=== PATIENT | female | born 1965 | race Caucasian/White ===

== ENCOUNTER 2021-04-22 22:44 | Inpatient (IN) | payer OTHER ==
[~2021-04-22] VITALS: Ht 157.5 cm; Wt 50.1 kg
[2021-04-22 23:12] VITALS: BP 111/70
[2021-04-22] MEDS ORDERED: DEXTROSE 50% 25 GM / 50ML DISP.SYRIN. IV PRN (23:15)
[2021-04-22] MEDS ORDERED: IV NORMAL SALINE 1000ML BAG 1,000 ML IV SCH (23:15)
[2021-04-22] MEDS ORDERED: MORPHINE SULFATE 2 MG/ML INJ. IVP PRN (23:15)
[2021-04-22] MEDS ORDERED: ONDANSETRON PF 4 MG/2 ML VIAL. IVP PRN (23:15)
[2021-04-22] MEDS ORDERED: 0.9 % SODIUM CHLORIDE 10 ML DISP.SYRIN. IV PRN (23:15)
[2021-04-22] MEDS ORDERED: KETOROLAC 15 MG/ML VIAL. IVP PRN (23:15)
[2021-04-22] MEDS ORDERED: IV DEXTROSE 5% 250 ML BAG. IV PRN (23:15)
[2021-04-22] MEDS ORDERED: PIP/TAZO PER PHARMACY MC PRN (23:15)
[2021-04-23] MEDS: PIPERACILLIN/TAZOBACTAM 3.375 GM in IV NORMAL SALINE 50ML 50 ML IV SCH ×4 (00:12→18:29)
--- NOTE | 2021-04-23 00:15 | NUR ---
ADMIT NOTE The patient, ISABELLA BILLINGS, 55 y/o, F admitted by LORETTA CORADO MD, was given written information regarding hospital policies, unit procedures and contact persons. Patient transferred from [facility] ED via EMS; MD notified of patient arrival. Patient orientated to unit, plan of care discussed, admit packet reviewed and allergies/home meds verified. Patient resting in bed, bed in lowest/locked position, and call light within reach; no needs voiced at this time.
[2021-04-23] MEDS ORDERED: ALLO300T PO (03:09)
[2021-04-23] MEDS ORDERED: CETI10TA74 PO (03:09)
[2021-04-23] MEDS ORDERED: PROP80CA53 PO (03:09)
[2021-04-23] MEDS ORDERED: TOPI100T42 PO (03:09)
[2021-04-23] MEDS ORDERED: PANT40TA77 PO (03:09)
[2021-04-23] MEDS ORDERED: MULT-245 PO (03:09)
[2021-04-23] MEDS ORDERED: FAMO-63 PO (03:09)
[2021-04-23 03:12] VITALS: BP 117/72
[2021-04-23 05:39] LABS: BASO % 0 % (0-3); EOS # 0.2 x10^3/uL (0.0-0.7); EOS % 3 % (0-3); HEMATOCRIT 32.2 % (36.0-47.0); HEMOGLOBIN 10.6 g/dL (12.0-15.5); LYMPH # 1.5 x10^3/uL (1.0-4.8); LYMPH % 32 % (24-48); MEAN CORPUSCULAR HEMOGLOBIN 30 pg (25-35); MEAN CORPUSCULAR HGB CONC 33 g/dL (31-37); MEAN CORPUSCULAR VOLUME 92 fL (79-100); MONO # 0.5 x10^3/uL (0.0-1.1); MONO % 11 % (0-9); NEUT # 2.6 x10^3/uL (1.8-7.7); NEUT % 54 % (31-73); PLATELET COUNT 157 x10^3/uL (140-400); RED BLOOD COUNT 3.49 x10^6/uL (3.50-5.40); RED CELL DISTRIBUTION WIDTH 13.5 % (11.5-14.5); WHITE BLOOD COUNT 4.8 x10^3/uL (4.0-11.0)
[2021-04-23 05:59] LABS: CALCIUM 8.2 mg/dL (8.5-10.1); CREATININE 1.1 mg/dL (0.6-1.0); GFR 51.6; POTASSIUM 3.6 mmol/L (3.5-5.1)
[2021-04-23 07:00] VITALS: BP 97/64
[2021-04-23] MEDS: INSULIN LISPRO 300 UNITS/3 ML VIAL. SQ SCH ×3 (08:00→17:00)
--- NOTE | 2021-04-23 08:20 | PDOC1 ---
History and Physical Date of Admission Date of Admission DATE: 04/23/21 TIME: 08:18 Identification/Chief Complaint Chief Complaint Flank pain/abdominal pain Source Source: Patient History of Present Illness History of Present Illness Ms Gaytan is a 55-year-old female w/ PMHx DM2, migraines, gout, prior nephrolithiasis, s/p ted-en-y gastric bypass who presents to the emergency department at [facility] in [place], [place] on 04/22/2021 for abdominal pain. Patient reports on Tuesday she started experiencing right flank pain that has now moved to her medial upper abdomen. She reports that the pain is worse after eating. She rates it 5 out of 10. She reports taking tramadol and her Protonix at home for her symptoms. Patient has a history of gout, GERD, hypertension, kidney stones, pyelitis. Patient reports nausea and a fever on Tuesday 1-1.7 which has resolved. Patient denies any vomiting, diarrhea, hematuria, urinary symptoms, reflux. She does note prior stones in 2013 and passed a few small kidney stones January 2021. She has migraines and previously had been on Imitrex and Maxalt prepump of maintenance therapy with Inderal and topiramate 200 mg daily has been on this for over a year but has not had headaches and has been trying to request decreasing her suppressive meds. WBC 5.6, Hb 12.2, platelets 192, NA 142, K4.2, BUN 29, CR 1.1, glucose 70, calcium 9.6, bilirubin 0.2, AST 46, ALT 104, alkaline phosphatase 115, albumin 3.1, lipase 94, urinalysis with large leuk esterase positive nitrites, rapid COVID-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 Transferred to [facility] for further care and urology consultation. Bedside pain controlled with toradol. NPO for surgical evaluation. Past Medical History CENTRAL NERVOUS SYSTEM: Migraine Renal/: Other (nephrolithiasis) Endocrine: Diabetes Past Surgical History Past Surgical History Cholecystectomy, Gastric Bypass - Ted en y, humeral head replacement, ORIF R leg. Left Past Surgical History: Cholecystectomy Family History Family History: High Cholestrol, Hypertension Social History Smoke: No ALCOHOL: none Drugs: None Current Medications Current Medications Current Medications Sodium Chloride (Normal Saline Flush) 3 ml PRN DAILY PRN IV AFTER MEDS AND BLOOD DRAWS; Start 04/22/21 at 23:15 Ondansetron HCl (Zofran) 4 mg PRN Q6HRS PRN IVP NAUSEA/VOMITING; Start 04/22/21 at 23:15 Ketorolac Tromethamine (Toradol 15mg Vial) 15 mg PRN Q8HRS PRN IVP INFLAMMATION Last administered on 04/23/21at 00:16; Start 04/22/21 at 23:15; Stop 04/23/21 at 23:15 Morphine Sulfate (Morphine Sulfate) 2 mg PRN Q2HR PRN IVP PAIN; Start 04/22/21 at 23:15 Insulin Human Lispro (HumaLOG) 0-7 UNITS TIDWMEALS SQ ; Start 04/23/21 at 08:00 Dextrose (Dextrose 50%-Water Syringe) 12.5 gm PRN Q15MIN PRN IV SEE COMMENTS; Start 04/22/21 at 23:15 Dextrose (Iv Dextrose 5%) 250 ml PRN Q15MIN PRN IV SEE COMMENTS; Start 04/22/21 at 23:15 Piperacillin Sod/ Tazobactam Sod (Zosyn Per Pharmacy) 1 each PRN DAILY PRN MC SEE COMMENTS; Start 04/22/21 at 23:15 Sodium Chloride 1,000 ml @ 100 mls/hr Q10H IV Last administered on 04/23/21at 00:11; Start 04/22/21 at 23:15 Piperacillin Sod/ Tazobactam Sod 3.375 gm/Sodium Chloride 50 ml @ 100 mls/hr Q6HRS IV Last administered on 04/23/21at 06:00; Start 04/23/21 at 00:00 Active Scripts Active Reported Zyrtec (Cetirizine Hcl) 10 Mg Tablet 1 Tab PO DAILY Multi Vitamin Daily (Multivitamin) 1 Each Tablet 1 Tab PO DAILY 30 Days Allopurinol 300 Mg Tablet 300 Mg PO DAILY Inderal Xl (Propranolol Hcl) 80 Mg Cap.er.24h 80 Mg PO DAILY Topamax (Topiramate) 100 Mg Tablet 100 Mg PO BID Pepcid (Famotidine) 20 Mg Tablet 20 Mg PO HS Protonix (Pantoprazole Sodium) 40 Mg Tablet.dr 40 Mg PO DAILYAC Allergies Allergies: Coded Allergies: No Known Medication Allergies (Verified Allergy, Unknown, 04/22/21) ROS General: No: Chills, Night Sweats, Fatigue, Malaise, Appetite, Other PSYCHOLOGICAL ROS: No: Anxiety, Behavioral Disorder, Concentration difficultie, Decreased libido, Depression, Disorientation, Hallucinations, Hostility, Irritablity, Memory difficulties, Mood Swings, Obsessive thoughts, Physical abuse, Sexual abuse, Sleep disturbances, Suicidal ideation, Other Eyes: No Blurry vision, No Decreased vision, No Double vision, No Dry eyes, No Excessive tearing, No Eye Pain, No Itchy Eyes, No Loss of vision, No Photophobia, No Scotomata, No Uses contacts, No Uses glasses, No Other HEENT: No: Heacaches, Visual Changes, Hearing change, Nasal congestion, Nasal discharge, Oral lesions, Sinus pain, Sore Throat, Epistaxis, Sneezing, Snoring, Tinnitus, Vertigo, Vocal changes, Other ALLERGY AND IMMUNOLOGY: No: Hives, Insect Bite Sensitivity, Itchy/Watery Eyes, Nasal Congestion, Post Nasal Drip, Seasonal Allergies, Other Hematological and Lymphatic: No: Bleeding Problems, Blood Clots, Blood Transfusions, Brusing, Night Sweats, Pallor, Swollen Lymph Nodes, Other ENDOCRINE: No: Breast Changes, Galactorrhea, Hair Pattern Changes, Hot Flashes, Malaise/lethargy, Mood Swings, Palpitations, Polydipsia/polyuria, Skin Changes, Temperature Intolerance, Unexpected Weight Changes, Other Breast: No New/Changing Breast Lumps, No Nipple changes, No Nipple discharge, No Other Respiratory: No: Cough, Hemoptysis, Orthopnea, Pleuritic Pain, Shortness of breath, SOB with excertion, Sputum Changes, Stridor, Tachypnea, Wheezing, Other Cardiovascular: No Chest Pain, No Palpitations, No Orthopnea, No Paroxysmal Noc. Dyspnea, No Edema, No Lt Headedness, No Other Gastrointestinal: Yes Abdominal Pain; No Nausea, No Vomiting, No Diarrhea, No Constipation, No Melena, No Hematochezia, No Other Genitourinary: No Dysuria, No Frequency, No Incontinence, No Hematuria, No Retention, No Discharge, No Urgency, No Pain, No Flank Pain, No Other, No , No , No , No , No , No , No Musculoskeletal: No Gait Disturbance, No Joint Pain, No Joint Stiffness, No Joint Swelling, No Muscle Pain, No Muscular Weakness, No Pain In:, No Swelling In:, No Other Neurological: No Behavorial Changes, No Bowel/Bladder ControlChng, No Confusion, No Dizziness, No Gait Disturbance, No Headaches, No Impaired Coord/balance, No Memory Loss, No Numbness/Tingling, No Seizures, No Speech Problems, No Tremors, No Visual Changes, No Weakness, No Other Skin: No Dry Skin, No Eczema, No Hair Changes, No Lumps, No Mole Changes, No Mottling, No Nail Changes, No Pruritus, No Rash, No Skin Lesion Changes, No Other, No Acne Physical Exam General: Alert, Oriented X3, Cooperative, No acute distress HEENT: Atraumatic, PERRLA, EOMI, Mucous membr. moist/pink Lungs: Clear to auscultation, Normal air movement Heart: S1S2, RRR, no thrills, no rubs, no gallops, no murmurs Abdomen: Normal bowel sounds, Soft, No hepatosplenomegaly, No masses Rectal Exam: not examined Extremities: No clubbing, No cyanosis, No edema, Normal pulses, No tenderness/swelling Skin: No rashes, No breakdown, No significant lesion Neuro: Normal gait, Normal speech, Strength at 5/5 X4 ext, Normal tone, Sensation intact, Cranial nerves 3-12 NL, Reflexes 2+ Psych/Mental Status: Mental status NL, Mood NL Vitals Vitals Vital Signs Date Time Temp Pulse Resp B/P (MAP) Pulse Ox O2 Delivery O2 Flow Rate FiO2 04/23/21 07:00 97.9 68 18 97/64 (75) 99 Room Air 97.9 Labs Labs Laboratory Tests Test 04/23/21 00:23 04/23/21 04:00 04/23/21 07:23 Glucose (Fingerstick) 195 mg/dL (70-99) 86 mg/dL (70-99) White Blood Count 4.8 x10^3/uL (4.0-11.0) Red Blood Count 3.49 x10^6/uL (3.50-5.40) Hemoglobin 10.6 g/dL (12.0-15.5) Hematocrit 32.2 % (36.0-47.0) Mean Corpuscular Volume 92 fL (79-100) Mean Corpuscular Hemoglobin 30 pg (25-35) Mean Corpuscular Hemoglobin Concent 33 g/dL (31-37) Red Cell Distribution Width 13.5 % (11.5-14.5) Platelet Count 157 x10^3/uL (140-400) Neutrophils (%) (Auto) 54 % (31-73) Lymphocytes (%) (Auto) 32 % (24-48) Monocytes (%) (Auto) 11 % (0-9) Eosinophils (%) (Auto) 3 % (0-3) Basophils (%) (Auto) 0 % (0-3) Neutrophils # (Auto) 2.6 x10^3/uL (1.8-7.7) Lymphocytes # (Auto) 1.5 x10^3/uL (1.0-4.8) Monocytes # (Auto) 0.5 x10^3/uL (0.0-1.1) Eosinophils # (Auto) 0.2 x10^3/uL (0.0-0.7) Basophils # (Auto) 0.0 x10^3/uL (0.0-0.2) Sodium Level 147 mmol/L (136-145) Potassium Level 3.6 mmol/L (3.5-5.1) Chloride Level 112 mmol/L (98-107) Carbon Dioxide Level 23 mmol/L (21-32) Anion Gap 12 (6-14) Blood Urea Nitrogen 24 mg/dL (7-20) Creatinine 1.1 mg/dL (0.6-1.0) Estimated GFR (Cockcroft-Gault) 51.6 Glucose Level 65 mg/dL (70-99) Calcium Level 8.2 mg/dL (8.5-10.1) Laboratory Tests Test 04/23/21 00:23 04/23/21 04:00 04/23/21 07:23 Glucose (Fingerstick) 195 mg/dL (70-99) 86 mg/dL (70-99) White Blood Count 4.8 x10^3/uL (4.0-11.0) Red Blood Count 3.49 x10^6/uL (3.50-5.40) Hemoglobin 10.6 g/dL (12.0-15.5) Hematocrit 32.2 % (36.0-47.0) Mean Corpuscular Volume 92 fL (79-100) Mean Corpuscular Hemoglobin 30 pg (25-35) Mean Corpuscular Hemoglobin Concent 33 g/dL (31-37) Red Cell Distribution Width 13.5 % (11.5-14.5) Platelet Count 157 x10^3/uL (140-400) Neutrophils (%) (Auto) 54 % (31-73) Lymphocytes (%) (Auto) 32 % (24-48) Monocytes (%) (Auto) 11 % (0-9) Eosinophils (%) (Auto) 3 % (0-3) Basophils (%) (Auto) 0 % (0-3) Neutrophils # (Auto) 2.6 x10^3/uL (1.8-7.7) Lymphocytes # (Auto) 1.5 x10^3/uL (1.0-4.8) Monocytes # (Auto) 0.5 x10^3/uL (0.0-1.1) Eosinophils # (Auto) 0.2 x10^3/uL (0.0-0.7) Basophils # (Auto) 0.0 x10^3/uL (0.0-0.2) Sodium Level 147 mmol/L (136-145) Potassium Level 3.6 mmol/L (3.5-5.1) Chloride Level 112 mmol/L (98-107) Carbon Dioxide Level 23 mmol/L (21-32) Anion Gap 12 (6-14) Blood Urea Nitrogen 24 mg/dL (7-20) Creatinine 1.1 mg/dL (0.6-1.0) Estimated GFR (Cockcroft-Gault) 51.6 Glucose Level 65 mg/dL (70-99) Calcium Level 8.2 mg/dL (8.5-10.1) Images Images CT ABD PELV W/ IV CONTRST ONLY The lung bases are clear. No pleural or pericardial effusion. The liver is unremarkable. Status post cholecystectomy with mild intrahepatic biliary ductal dilatation. The pancreas and adrenal glands are unremarkable. Mildly enlarged spleen measures 12.5 cm AP. There is a duplex right kidney. Punctate right nephrolithiasis without hydronephrosis. No right perinephric fat stranding or hydroureter. There is a left ureteral pelvic junction stone measuring 1.1 x 1.7 cm with thickening and enhancement of the renal pelvic urothelium and a several foci of air in the renal calyces. Mild hydronephrosis and mild left perinephric stranding, improved from December comparison. Multiple small left nephroliths. Benign upper left upper pole renal cyst. The bladder is mostly decompressed without focal abnormality. Normal uterus and adnexa. Postsurgical changes of the stomach from gastric bypass. No abnormal dilation. The antecolic alimentary limb with left midabdomen jejunojejunostomy with expected appearance. No small bowel dilatation. The pancreaticobiliary limb is unremarkable. Mild colonic stool burden without abnormal dilation. The appendix is not discretely visualized, however there is no evidence of appendicitis. There is small pelvic free fluid. No intra-abdominal free air. No adenopathy. Mild aortic calcification without aneurysm. The soft tissues are unremarkable. Osseous structures are within normal limits. Impression: 1. Left ureterovesicular junction stone measuring 1.1 x 1.7 cm with thickened enhancing renal pelvic urothelium and air within the renal collecting system. 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 Overall left perinephric inflammation appears improved from comparison exam. Recommend urology consultation. 2. Additional bilateral nephrolithiasis. 3. Mild splenomegaly. 4. Postsurgical changes from gastric bypass without evidence of obstruction. 5. Mild nonspecific free pelvic fluid. 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 NPO. Urology consulted Migraines - with recurrent recent nephrolithiasis advised to decreased topiramate dosing. Gout - also notes prior uric acid stone 2013. On allopurinol DM2 - off meds due to weight loss. POC glucose check and sliding scale insulin FEN - NPO PPX - lovenox post op FULL CODE Dispo - inpatient Justifications for Admission Other Justification TOMMY VARGAS MD Apr 23, 2021 08:20
[2021-04-23] MEDS: POTASSIUM CL 20MEQ D5-0.45NACL 1,000 ML IV SCH (09:25)
[2021-04-23] MEDS ORDERED: HYDROmorphone 2 MG/ML INJ. IVP PRN (10:30)
[2021-04-23] MEDS ORDERED: ceFAZolin SODIUM IV Push 1 GM VIAL. IVP PRN (10:30)
[2021-04-23] MEDS ORDERED: PROCHLORPERAZINE 10 MG/2 ML VIAL. IVP PRN (10:30)
[2021-04-23] MEDS ORDERED: fentaNYL PF VIAL 100 MCG/2 ML VIAL IVP PRN ×2 (10:30)
[2021-04-23] MEDS ORDERED: IV RINGERS,LACTATED 1000ML 1,000 ML IV SCH (10:30)
[2021-04-23] MEDS ORDERED: MORPHINE SULFATE 2 MG/ML INJ. IVP PRN (10:30)
--- NOTE | 2021-04-23 10:36 | PDOC2 ---
UROLOGY CONSULT Date of Service DATE: 04/23/21 TIME: 10:26 Reason for Consult Reason for Consult: URETER STONE Identification/Chief Complaint Chief Complaint flank pain History of Present Illness Reason for Visit: 55yo female presented to [facility] ER for bilateral flank pain. Pain radiates to bilateral lower abdomen. She also endorses dysuria. Had fever of 102 two days ago but denies fevers since. Pain medication has somewhat improved the pain. CT showed left UPJ stone with findings consistent with emphysematous pyelitis. Her vitals and labs have been stable. She endorses history of kidney stones, last saw a urologist in 2013. She had a CT with similar findings a few months ago but was told at the time she would pass the stones so no surgery was done. She wants to get this treated. She denies fevers today, hematuria, dizziness, shortness of breath, chest pain. Past Medical History Cardiovascular: HTN GI: GERD Renal/: UTI, Other (kidney stones) Endocrine: Diabetes Past Surgical History Past Surgical History: Cholecystectomy, Other (Ted en Y) Social History Drugs: None Current Medications Current Medications Current Medications Dextrose (Dextrose 50%-Water Syringe) 12.5 gm PRN Q15MIN PRN IV SEE COMMENTS; Start 04/22/21 at 23:15 Dextrose (Iv Dextrose 5%) 250 ml PRN Q15MIN PRN IV SEE COMMENTS; Start 04/22/21 at 23:15 Fentanyl Citrate (Fentanyl 2ml Vial) 25 mcg PRN Q5MIN PRN IVP MILD PAIN 1-3; Start 04/23/21 at 10:30; Stop 04/24/21 at 10:29; Status UNV Fentanyl Citrate (Fentanyl 2ml Vial) 50 mcg PRN Q5MIN PRN IVP MODERATE PAIN 4- 6; Start 04/23/21 at 10:30; Stop 04/24/21 at 10:29; Status UNV Hydromorphone HCl (Dilaudid) 0.5 mg PRN Q10MIN PRN IVP SEVERE PAIN 7-10, 2nd CHOICE; Start 04/23/21 at 10:30; Stop 04/24/21 at 10:29; Status UNV Insulin Human Lispro (HumaLOG) 0-7 UNITS TIDWMEALS SQ ; Start 04/23/21 at 08:00 Ketorolac Tromethamine (Toradol 15mg Vial) 15 mg PRN Q8HRS PRN IVP INFLAMMATION Last administered on 04/23/21at 00:16; Start 04/22/21 at 23:15; Stop 04/23/21 at 23:15 Morphine Sulfate (Morphine Sulfate) 1 mg PRN Q10MIN PRN IVP SEVERE PAIN 7-10; Start 04/23/21 at 10:30; Stop 04/24/21 at 10:29; Status UNV Morphine Sulfate (Morphine Sulfate) 2 mg PRN Q2HR PRN IVP PAIN; Start 04/22/21 at 23:15 Ondansetron HCl (Zofran) 4 mg PRN Q6HRS PRN IVP NAUSEA/VOMITING; Start 04/22/21 at 23:15 Piperacillin Sod/ Tazobactam Sod (Zosyn Per Pharmacy) 1 each PRN DAILY PRN MC SEE COMMENTS; Start 04/22/21 at 23:15 Piperacillin Sod/ Tazobactam Sod 3.375 gm/Sodium Chloride 50 ml @ 100 mls/hr Q6HRS IV Last administered on 04/23/21at 06:00; Start 04/23/21 at 00:00 Potassium Chloride/Dextrose/ Sod Cl 1,000 ml @ 75 mls/hr [id number] IV Last administered on 04/23/21at 09:25; Start 04/23/21 at 08:30 Prochlorperazine Edisylate (Compazine) 5 mg PACU PRN PRN IVP NAUSEA, MRX1; Start 04/23/21 at 10:30; Stop 04/24/21 at 10:29; Status UNV Ringer's Solution 1,000 ml @ 30 mls/hr Q24H IV ; Start 04/23/21 at 10:30; Stop 04/23/21 at 22:29; Status UNV Sodium Chloride 1,000 ml @ 100 mls/hr Q10H IV Last administered on 04/23/21at 00:11; Start 04/22/21 at 23:15; Stop 04/23/21 at 08:20; Status DC Sodium Chloride (Normal Saline Flush) 3 ml PRN DAILY PRN IV AFTER MEDS AND BLOOD DRAWS; Start 04/22/21 at 23:15 Allergies Allergies: Coded Allergies: No Known Medication Allergies (Verified Allergy, Unknown, 04/22/21) ROS Review Of Systems: CONSTITUTIONAL: No fever or chills EYES: No recent changes SKIN: No rash or itching CARDIOVASCULAR: No chest pain, syncope, palpitations, or edema RESPIRATORY: No SOB or cough GASTROINTESTINAL: No nausea, vomiting or abdominal pain NEUROLOGICAL: No headaches or weakness ENDOCRINE: No cold or heat intolerance GENITOURINARY: No urgency or frequency of urination MUSCULOSKELETAL: No back pain or joint pain LYMPHATICS: No enlarged lymph nodes PSYCHIATRIC: No anxiety or depression Physical Exam Physical Exam: General: Pleasant, no acute distress, well groomed Eyes: conjunctiva anicteric, eyes full range of motion ENT: moist oral mucosa, normal dentition Neck: Trachea midline, no masses Respiratory: unlabored breathing, not using accessory muscles, no crackles or wheezes Cardiovascular: Regular rate and rhythm, no peripheral edema Abdomen: bilateral low abd tender, nondistended Back: bilatl CVAT Skin: no rashes or skin lesions on visualized skin Psych: normal mood, affect. Alert and oriented x 3. Vitals VITALS Vital Signs Date Time Temp Pulse Resp B/P (MAP) Pulse Ox O2 Delivery O2 Flow Rate FiO2 04/23/21 10:09 Room Air 04/23/21 07:00 97.9 68 18 97/64 (75) 99 97.9 Labs Labs Laboratory Tests Test 04/23/21 00:23 04/23/21 04:00 04/23/21 07:23 Glucose (Fingerstick) 195 mg/dL (70-99) 86 mg/dL (70-99) White Blood Count 4.8 x10^3/uL (4.0-11.0) Red Blood Count 3.49 x10^6/uL (3.50-5.40) Hemoglobin 10.6 g/dL (12.0-15.5) Hematocrit 32.2 % (36.0-47.0) Mean Corpuscular Volume 92 fL (79-100) Mean Corpuscular Hemoglobin 30 pg (25-35) Mean Corpuscular Hemoglobin Concent 33 g/dL (31-37) Red Cell Distribution Width 13.5 % (11.5-14.5) Platelet Count 157 x10^3/uL (140-400) Neutrophils (%) (Auto) 54 % (31-73) Lymphocytes (%) (Auto) 32 % (24-48) Monocytes (%) (Auto) 11 % (0-9) Eosinophils (%) (Auto) 3 % (0-3) Basophils (%) (Auto) 0 % (0-3) Neutrophils # (Auto) 2.6 x10^3/uL (1.8-7.7) Lymphocytes # (Auto) 1.5 x10^3/uL (1.0-4.8) Monocytes # (Auto) 0.5 x10^3/uL (0.0-1.1) Eosinophils # (Auto) 0.2 x10^3/uL (0.0-0.7) Basophils # (Auto) 0.0 x10^3/uL (0.0-0.2) Sodium Level 147 mmol/L (136-145) Potassium Level 3.6 mmol/L (3.5-5.1) Chloride Level 112 mmol/L (98-107) Carbon Dioxide Level 23 mmol/L (21-32) Anion Gap 12 (6-14) Blood Urea Nitrogen 24 mg/dL (7-20) Creatinine 1.1 mg/dL (0.6-1.0) Estimated GFR (Cockcroft-Gault) 51.6 Glucose Level 65 mg/dL (70-99) Uric Acid 3.5 mg/dL (2.6-6.0) Calcium Level 8.2 mg/dL (8.5-10.1) Laboratory Tests Test 04/23/21 00:23 04/23/21 04:00 04/23/21 07:23 Glucose (Fingerstick) 195 mg/dL (70-99) 86 mg/dL (70-99) White Blood Count 4.8 x10^3/uL (4.0-11.0) Red Blood Count 3.49 x10^6/uL (3.50-5.40) Hemoglobin 10.6 g/dL (12.0-15.5) Hematocrit 32.2 % (36.0-47.0) Mean Corpuscular Volume 92 fL (79-100) Mean Corpuscular Hemoglobin 30 pg (25-35) Mean Corpuscular Hemoglobin Concent 33 g/dL (31-37) Red Cell Distribution Width 13.5 % (11.5-14.5) Platelet Count 157 x10^3/uL (140-400) Neutrophils (%) (Auto) 54 % (31-73) Lymphocytes (%) (Auto) 32 % (24-48) Monocytes (%) (Auto) 11 % (0-9) Eosinophils (%) (Auto) 3 % (0-3) Basophils (%) (Auto) 0 % (0-3) Neutrophils # (Auto) 2.6 x10^3/uL (1.8-7.7) Lymphocytes # (Auto) 1.5 x10^3/uL (1.0-4.8) Monocytes # (Auto) 0.5 x10^3/uL (0.0-1.1) Eosinophils # (Auto) 0.2 x10^3/uL (0.0-0.7) Basophils # (Auto) 0.0 x10^3/uL (0.0-0.2) Sodium Level 147 mmol/L (136-145) Potassium Level 3.6 mmol/L (3.5-5.1) Chloride Level 112 mmol/L (98-107) Carbon Dioxide Level 23 mmol/L (21-32) Anion Gap 12 (6-14) Blood Urea Nitrogen 24 mg/dL (7-20) Creatinine 1.1 mg/dL (0.6-1.0) Estimated GFR (Cockcroft-Gault) 51.6 Glucose Level 65 mg/dL (70-99) Uric Acid 3.5 mg/dL (2.6-6.0) Calcium Level 8.2 mg/dL (8.5-10.1) Images Images Reviewed images from [place]---mild left hydronephrosis with air in collecting system, 1x1.7cm left UPJ stone Assessment/Plan Assessment/Plan Emphysematous pyelitis, 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 Labs wnl. UA mod bacteria. Recommend renal unit decompression to facilitate treatment of infection. Cystoscopy, left ureteral stent placement. Risks and benefits reviewed with patient. Possibility of needing left PCNT if unable to place stent. Need for delayed stone removal in 2wks after time for antibiotics and resolution of infection. She agrees to undergo. Pt NPO. Scheduled with Dr. Green today at 1700. Cont empiric abx, IVF. Pt needs strict DM control. SYLVIA THURMAN Apr 23, 2021 10:36
--- NOTE | 2021-04-23 10:43 | NUR ---
SW following. Discussed with RN, pt from home, room air, NPO. Urology following. RN advised no SW needs at this time. SW will continue to follow.
[2021-04-23] MEDS ORDERED: FAMOTIDINE 20 MG/2 ML VIAL IVP ONE (10:45)
[2021-04-23 11:03] VITALS: BP 116/73
[2021-04-23 15:01] VITALS: BP 115/75
[2021-04-23] MEDS ORDERED: SCOPOLAMINE 1.5MG PATCH. TD ONE (16:15)
[2021-04-23] MEDS ORDERED: SCOPOLAMINE 1.5MG PATCH. TD SCH (16:29)
[2021-04-23] MEDS ORDERED: IOHEXOL 300 MG/ML 50 ML VIAL. ONE (16:54)
[2021-04-23] MEDS ORDERED: LIDOCAINE 2% PF 5 ML VIAL. ONE (16:54)
[2021-04-23] MEDS ORDERED: ONDANSETRON PF 4 MG/2 ML VIAL. ONE (16:54)
[2021-04-23] MEDS ORDERED: DEXAMETHASONE SOD PHOS 4 MG/ML VIAL ONE (16:54)
[2021-04-23] MEDS ORDERED: PROPOFOL 10 MG/ML (20ML) VIAL. IV ONE (16:54)
[2021-04-23] MEDS ORDERED: fentaNYL PF VIAL 100 MCG/2 ML VIAL ONE (16:56)
--- NOTE | 2021-04-23 17:40 | PDOC4 ---
OPERATIVE NOTE Date: Date: Apr 23, 2021 Pre-Op Diagnosis: Left UPJ stone UTI Post-Op Diagnosis: Same Procedure Performed: Cystoscopy left retrograde pyelography interpretation Left stent placement Surgeon: Dr. Green Anesthesia Type: General anesthesia Blood Loss: 0 mL Findings: Left UPJ stone large no significant hydroureteronephrosis Complications: None evident Operative Note: Patient was taken back to the procedure room. She was placed under general anesthesia. She was prepped and draped usual sterile fashion dorsolithotomy position. Timeout was performed, SCDs were attached, IV antibiotic were administered. A 21 Sinhala rigid cystoscope was advanced per urethra into the bladder. Squamous metaplasia was noted all over the bladder mucosa. Left UO was visualized in orthotopic and patent position. This was cannulated with a 5 Sinhala open ureteral catheter. Retrograde pyelography visualized obvious large renal pelvis stone. No significant hydroureteric nephrosis. A sensor wire was placed past the stone. A 6 x 24 stents was placed with loupes confirmed the kidney and the bladder. There was no obvious purulent material coming from the kidney. Patient was taken back to recovery in stable condition. JAH GREEN MD Apr 23, 2021 17:40
[2021-04-23] MEDS ORDERED: SEVOFLURANE 31 TO 60 MINUTES. IH ONE (17:49)
[2021-04-23 19:00] VITALS: BP 123/68
[2021-04-23] MEDS: OXYBUTYNIN CHLORIDE 5 MG TABLET PO SCH (20:20)
[2021-04-23 23:00] VITALS: BP 121/72
[2021-04-24] MEDS: PIPERACILLIN/TAZOBACTAM 3.375 GM in IV NORMAL SALINE 50ML 50 ML IV SCH ×3 (00:12→12:00)
[2021-04-24 02:09] LABS: HEMOGLOBIN A1C 5.1 % (4.8-5.6)
[2021-04-24] MEDS: POTASSIUM CL 20MEQ D5-0.45NACL 1,000 ML IV SCH ×2 (02:16→08:25)
[2021-04-24 03:00] VITALS: BP 106/65
[2021-04-24 07:00] VITALS: BP 110/63
[2021-04-24] MEDS: INSULIN LISPRO 300 UNITS/3 ML VIAL. SQ SCH ×2 (08:00→12:00)
[2021-04-24] MEDS: OXYBUTYNIN CHLORIDE 5 MG TABLET PO SCH (08:24)
--- NOTE | 2021-04-24 10:49 | NUR ---
SW following. Discussed with RN, pt from home, room air, ada diet, ad kilo. Pt had surgery on 04/23/21. RN advised no SW needs. Possible discharge home today. SW will continue to follow.
[2021-04-24 11:00] VITALS: BP 110/63
[2021-04-24] MEDS ORDERED: HYOSCYAMINE 0.125 MG TAB.RAPDIS PO PRN (12:15)
--- NOTE | 2021-04-24 12:15 | PDOC ---
PROGRESS NOTE DATE OF SERVICE: DATE: 04/24/21 TIME: 12:13 CHIEF COMPLAINT: flank pain SUBJECTIVE: HPI: Duration: [] Quality: [] Severity: [] Site/Location: [] OBJECTIVE: Vital Signs: Vital Signs Date Time Temp Pulse Resp B/P (MAP) Pulse Ox O2 Delivery O2 Flow Rate FiO2 04/24/21 07:36 Room Air 04/24/21 07:00 97.8 45 18 110/63 (79) 99 Room Air 97.8 04/24/21 03:00 97.5 46 14 106/65 (79) 98 Room Air 97.5 04/23/21 23:00 97.7 54 14 121/72 (88) 98 Room Air 97.7 04/23/21 20:00 Room Air 04/23/21 19:00 97.4 86 14 123/68 (86) 98 Room Air 97.4 04/23/21 18:12 97.9 52 13 139/77 99 Room Air 97.9 04/23/21 17:57 60 17 133/80 100 Room Air 04/23/21 17:42 97.0 59 13 119/73 100 Simple Mask 5 97.0 04/23/21 17:42 Mask 5 04/23/21 16:14 98.5 55 124/72 98 Room Air 98.5 04/23/21 15:01 98.1 57 20 115/75 (88) 98 Room Air 98.1 I & O Intake and Output 04/24/21 07:00 Intake Total 1650 ml Output Total 1550 ml Balance 100 ml Intake Oral 800 ml IV Total 850 ml Output Urine Total 1550 ml PHYSICAL EXAM: Physical Exam: General: Pleasant, no acute distress, well groomed Eyes: conjunctiva anicteric, eyes full range of motion ENT: moist oral mucosa, normal dentition Neck: Trachea midline, no masses Respiratory: unlabored breathing, not using accessory muscles, no crackles or wheezes Cardiovascular: Regular rate and rhythm, no peripheral edema Abdomen: nontender, nondistended, no hepatosplenomegaly, no masses Skin: no rashes or skin lesions on visualized skin Psych: normal mood, affect. Alert and oriented x 3. LABS: Laboratory Tests Test 04/23/21 00:23 04/23/21 04:00 04/23/21 07:23 04/23/21 11:28 Glucose (Fingerstick) 195 mg/dL (70-99) 86 mg/dL (70-99) 88 mg/dL (70-99) White Blood Count 4.8 x10^3/uL (4.0-11.0) Red Blood Count 3.49 x10^6/uL (3.50-5.40) Hemoglobin 10.6 g/dL (12.0-15.5) Hematocrit 32.2 % (36.0-47.0) Mean Corpuscular Volume 92 fL (79-100) Mean Corpuscular Hemoglobin 30 pg (25-35) Mean Corpuscular Hemoglobin Concent 33 g/dL (31-37) Red Cell Distribution Width 13.5 % (11.5-14.5) Platelet Count 157 x10^3/uL (140-400) Neutrophils (%) (Auto) 54 % (31-73) Lymphocytes (%) (Auto) 32 % (24-48) Monocytes (%) (Auto) 11 % (0-9) Eosinophils (%) (Auto) 3 % (0-3) Basophils (%) (Auto) 0 % (0-3) Neutrophils # (Auto) 2.6 x10^3/uL (1.8-7.7) Lymphocytes # (Auto) 1.5 x10^3/uL (1.0-4.8) Monocytes # (Auto) 0.5 x10^3/uL (0.0-1.1) Eosinophils # (Auto) 0.2 x10^3/uL (0.0-0.7) Basophils # (Auto) 0.0 x10^3/uL (0.0-0.2) Sodium Level 147 mmol/L (136-145) Potassium Level 3.6 mmol/L (3.5-5.1) Chloride Level 112 mmol/L (98-107) Carbon Dioxide Level 23 mmol/L (21-32) Anion Gap 12 (6-14) Blood Urea Nitrogen 24 mg/dL (7-20) Creatinine 1.1 mg/dL (0.6-1.0) Estimated GFR (Cockcroft-Gault) 51.6 Glucose Level 65 mg/dL (70-99) Hemoglobin A1c 5.1 % (4.8-5.6) Uric Acid 3.5 mg/dL (2.6-6.0) Calcium Level 8.2 mg/dL (8.5-10.1) Test 04/24/21 07:57 Glucose (Fingerstick) 112 mg/dL (70-99) MEDICATIONS: Current Medications Medications (Trade) Dose Ordered Sig/Link Start Time Stop Time Status Last Admin Dose Admin Cefazolin Sodium (Ancef) 1 gm 1X PREOP PRN 04/23/21 10:30 04/24/21 10:46 DC 04/23/21 17:15 1 GM Cefazolin Sodium/ Dextrose 50 ml @ As Directed STK-MED ONCE 04/23/21 16:15 04/23/21 16:16 DC Dexamethasone Sodium Phosphate (Decadron) 4 mg STK-MED ONCE 04/23/21 16:54 04/23/21 16:54 DC Dextrose (Dextrose 50%-Water Syringe) 12.5 gm PRN Q15MIN PRN 04/22/21 23:15 Dextrose (Iv Dextrose 5%) 250 ml PRN Q15MIN PRN 04/22/21 23:15 Famotidine (Pepcid Vial) 20 mg 1X ONCE 04/23/21 10:45 04/23/21 10:46 DC 04/23/21 11:40 20 MG Fentanyl Citrate (Fentanyl 2ml Vial) 100 mcg STK-MED ONCE 04/23/21 16:56 04/23/21 16:56 DC Hydromorphone HCl (Dilaudid) 0.5 mg PRN Q10MIN PRN 04/23/21 10:30 04/24/21 09:03 DC Insulin Human Lispro (HumaLOG) 0-7 UNITS TIDWMEALS 04/23/21 08:00 Iohexol (Omnipaque 300 Mg/ml) 50 ml STK-MED ONCE 04/23/21 16:54 04/23/21 16:55 DC 04/23/21 17:23 10 ML Ketorolac Tromethamine (Toradol 15mg Vial) 15 mg PRN Q8HRS PRN 04/22/21 23:15 04/23/21 23:15 DC 04/23/21 00:16 15 MG Lidocaine HCl (Lidocaine Pf 2% Vial) 5 ml STK-MED ONCE 04/23/21 16:54 04/23/21 16:54 DC Morphine Sulfate (Morphine Sulfate) 1 mg PRN Q10MIN PRN 04/23/21 10:30 04/24/21 09:03 DC Ondansetron HCl (Zofran) 4 mg STK-MED ONCE 04/23/21 16:54 04/23/21 16:54 DC Oxybutynin Chloride (Ditropan) 5 mg DAILY 04/23/21 20:00 04/24/21 08:24 5 MG Piperacillin Sod/ Tazobactam Sod (Zosyn Per Pharmacy) 1 each PRN DAILY PRN 04/22/21 23:15 Piperacillin Sod/ Tazobactam Sod 3.375 gm/Sodium Chloride 50 ml @ 100 mls/hr Q6HRS 04/23/21 00:00 04/24/21 06:08 100 MLS/HR Potassium Chloride/Dextrose/ Sod Cl 1,000 ml @ 75 mls/hr [id number] 04/23/21 08:30 04/24/21 08:25 75 MLS/HR Prochlorperazine Edisylate (Compazine) 5 mg PACU PRN PRN 04/23/21 10:30 04/24/21 09:03 DC Propofol (Diprivan) 200 mg STK-MED ONCE 04/23/21 16:54 04/23/21 16:54 DC Ringer's Solution 1,000 ml @ 30 mls/hr Q24H 04/23/21 10:30 04/23/21 22:29 DC 04/23/21 16:12 30 MLS/HR Scopolamine (Transderm-Scop) 1 patch Q3DAYS 04/23/21 16:29 04/23/21 16:30 DC 04/23/21 16:30 1 PATCH Sevoflurane (Ultane) 30 ml STK-MED ONCE 04/23/21 17:49 04/23/21 17:49 DC Sodium Chloride 1,000 ml @ 100 mls/hr Q10H 04/22/21 23:15 04/23/21 08:20 DC 04/23/21 00:11 100 MLS/HR Sodium Chloride (Normal Saline Flush) 3 ml PRN DAILY PRN 04/22/21 23:15 ASSESSMENT & PLAN Emphysematous pyelitis, 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 Labs wnl. UA mod bacteria. Left ureteral stent placed by Dr Green 04/23 Recommend antibiotics to total 14 days. Oxybutynin daily or levsin prn for spasms. Patient will try and let nurse know which works better Pt needs strict DM control. Will have pt follow up with Dr. Green to discuss stone options. ALISSA SEALS APRN Apr 24, 2021 12:15
[2021-04-24 12:45] LABS: CALCIUM 8.6 mg/dL (8.5-10.1); CREATININE 1.3 mg/dL (0.6-1.0); GFR 42.5
[2021-04-24 12:50] LABS: ALBUMIN 2.6 g/dL (3.4-5.0); ALBUMIN/GLOBULIN RATIO 0.7 (1.0-1.7); TOTAL BILIRUBIN 0.2 mg/dL (0.2-1.0); TOTAL PROTEIN 6.3 g/dL (6.4-8.2)
[2021-04-24] MEDS ORDERED: HYDROcodone/APAP 5/325MG 1 TAB TABLET PO PRN (14:15)
[2021-04-24] MEDS ORDERED: HYOS0.12 PO (14:23)
[2021-04-24] MEDS ORDERED: CIPR500T2 PO (14:24)
[2021-04-24] MEDS ORDERED: HYDR-2761 PO (14:24)
[2021-04-24] MEDS ORDERED: SUMA100T4 PO (14:26)
--- NOTE | 2021-04-24 14:29 | PDOC ---
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 Urology f/u. OR with no purulence from left kidney on Cystoscopy left retrograde pyelography interpretation, tolerated Left stent placement on 04/23/2021 Migraines - with recurrent recent nephrolithiasis advised to decreased topiramate dosing. Gout - also notes prior uric acid stone 2013. On allopurinol DM2 - off meds due to weight loss. POC glucose check and sliding scale insulin UTI - E. coli, empiric cipro 14 days FEN - Regular diet PPX - lovenox post op FULL CODE Dispo - inpatient History of Present Illness History of Present Illness Ms Gaytan is a 55-year-old female w/ PMHx DM2, migraines, gout, prior nephrolithiasis, s/p loreta-en-y gastric bypass who presents to the emergency department at [facility] in [place], [place] on 04/22/2021 for abdominal pain. Patient reports on Tuesday she started experiencing right flank pain that has n ow moved to her medial upper abdomen. She reports that the pain is worse after eating. She rates it 5 out of 10. She reports taking tramadol and her Protonix at home for her symptoms. Patient has a history of gout, GERD, hypertension, kidney stones, pyelitis. Patient reports nausea and a fever on Tuesday 1-1.7 which has resolved. Patient denies any vomiting, diarrhea, hematuria, urinary symptoms, reflux. She does note prior stones in 2013 and passed a few small kidney stones January 2021. She has migraines and previously had been on Imitrex and Maxalt prepump of maintenance therapy with Inderal and topiramate 200 mg daily has been on this for over a year but has not had headaches and has been trying to request decreasing her suppressive meds. WBC 5.6, Hb 12.2, platelets 192, NA 142, K4.2, BUN 29, CR 1.1, glucose 70, calcium 9.6, bilirubin 0.2, AST 46, ALT 104, alkaline phosphatase 115, albumin 3.1, lipase 94, urinalysis with large leuk esterase positive nitrites, rapid COVID-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 Transferred to [place] for further care and urology consultation. Bedside pain controlled with toradol. NPO for surgical evaluation. 04/23: To OR with no purulence from left kidney on Cystoscopy left retrograde pyelography interpretation, tolerated Left stent placement. Urine culture from [facility] positive for 100,000 CFU of E. coli 04/24: Seen bedside feeling well pain is controlled on minimal pain meds with hydrocodone. Will have outpatient follow-up for definitive stone treatment with urology in the next 2 weeks. Will discharge on 500 mg Cipro twice daily hydrocodone. Advised to decrease her topiramate to 50 mg twice daily and adjunctive sumatriptan and called in for her as well. Vitals/I&O Vitals/I&O: Vital Signs Date Time Temp Pulse Resp B/P (MAP) Pulse Ox O2 Delivery O2 Flow Rate FiO2 04/24/21 11:00 98.0 45 18 110/63 (79) 97 Room Air 98.0 04/23/21 17:42 5 I & O 04/23/21 04/23/21 04/24/21 15:00 23:00 07:00 Intake Total 0 ml 850 ml 800 ml Output Total 175 ml 75 ml 1300 ml Balance -175 ml 775 ml -500 ml Physical Exam General: Alert, Oriented X3, Cooperative, No acute distress Abdomen: Normal bowel sounds, Soft, No hepatosplenomegaly, No masses Extremities: No clubbing, No cyanosis, No edema, Normal pulses, No tenderness/swelling Skin: No rashes, No breakdown, No significant lesion Labs Labs: Laboratory Tests Test 04/24/21 07:57 04/24/21 12:22 04/24/21 12:30 Glucose (Fingerstick) 112 mg/dL (70-99) 103 mg/dL (70-99) Sodium Level 146 mmol/L (136-145) Potassium Level 4.0 mmol/L (3.5-5.1) Chloride Level 112 mmol/L (98-107) Carbon Dioxide Level 23 mmol/L (21-32) Anion Gap 11 (6-14) Blood Urea Nitrogen 21 mg/dL (7-20) Creatinine 1.3 mg/dL (0.6-1.0) Estimated GFR (Cockcroft-Gault) 42.5 BUN/Creatinine Ratio 16 (6-20) Glucose Level 104 mg/dL (70-99) Calcium Level 8.6 mg/dL (8.5-10.1) Total Bilirubin 0.2 mg/dL (0.2-1.0) Aspartate Amino Transf (AST/SGOT) 17 U/L (15-37) Alanine Aminotransferase (ALT/SGPT) 49 U/L (14-59) Alkaline Phosphatase 93 U/L (46-116) Total Protein 6.3 g/dL (6.4-8.2) Albumin 2.6 g/dL (3.4-5.0) Albumin/Globulin Ratio 0.7 (1.0-1.7) Comment Review of Relevant I have reviewed the following items huan (where applicable) has been applied. Medications: Current Medications Medications (Trade) Dose Ordered Sig/Link Route PRN Reason Start Time Stop Time Status Last Admin Dose Admin Scopolamine (Transderm-Scop) 1 patch Q3DAYS TD 04/23/21 16:29 04/23/21 16:30 DC 04/23/21 16:30 Iohexol (Omnipaque 300 Mg/ml) 50 ml STK-MED ONCE .ROUTE 04/23/21 16:54 04/23/21 16:55 DC 04/23/21 17:23 Oxybutynin Chloride (Ditropan) 5 mg DAILY PO 04/23/21 20:00 04/24/21 08:24 Hyoscyamine (Anaspaz) 0.125 mg PRN Q4HRS PRN PO STOMACH CRAMPING 04/24/21 12:15 04/24/21 12:25 Justifications for Admission Other Justification TOMMY VARGAS MD Apr 24, 2021 14:29
--- NOTE | 2021-04-24 14:30 | PDOC3 ---
Discharge Summary Visit Information Date of Admission: Apr 22, 2021 Date of Discharge: Apr 24, 2021 Admitting Diagnosis: Left pyelitis Final Diagnosis Left pyelitis Brief Hospital Course Allergies Allergies Coded Allergies Type Severity Reaction Last Updated Verified No Known Medication Allergies Allergy Unknown 04/22/21 Yes Vital Signs Vital Signs Date Time Temp Pulse Resp B/P (MAP) Pulse Ox O2 Delivery O2 Flow Rate FiO2 04/24/21 11:00 98.0 45 18 110/63 (79) 97 Room Air 98.0 04/23/21 17:42 5 Lab Results Laboratory Tests Test 04/23/21 00:23 04/23/21 04:00 04/23/21 07:23 04/23/21 11:28 Glucose (Fingerstick) 195 mg/dL (70-99) 86 mg/dL (70-99) 88 mg/dL (70-99) White Blood Count 4.8 x10^3/uL (4.0-11.0) Red Blood Count 3.49 x10^6/uL (3.50-5.40) Hemoglobin 10.6 g/dL (12.0-15.5) Hematocrit 32.2 % (36.0-47.0) Mean Corpuscular Volume 92 fL (79-100) Mean Corpuscular Hemoglobin 30 pg (25-35) Mean Corpuscular Hemoglobin Concent 33 g/dL (31-37) Red Cell Distribution Width 13.5 % (11.5-14.5) Platelet Count 157 x10^3/uL (140-400) Neutrophils (%) (Auto) 54 % (31-73) Lymphocytes (%) (Auto) 32 % (24-48) Monocytes (%) (Auto) 11 % (0-9) Eosinophils (%) (Auto) 3 % (0-3) Basophils (%) (Auto) 0 % (0-3) Neutrophils # (Auto) 2.6 x10^3/uL (1.8-7.7) Lymphocytes # (Auto) 1.5 x10^3/uL (1.0-4.8) Monocytes # (Auto) 0.5 x10^3/uL (0.0-1.1) Eosinophils # (Auto) 0.2 x10^3/uL (0.0-0.7) Basophils # (Auto) 0.0 x10^3/uL (0.0-0.2) Sodium Level 147 mmol/L (136-145) Potassium Level 3.6 mmol/L (3.5-5.1) Chloride Level 112 mmol/L (98-107) Carbon Dioxide Level 23 mmol/L (21-32) Anion Gap 12 (6-14) Blood Urea Nitrogen 24 mg/dL (7-20) Creatinine 1.1 mg/dL (0.6-1.0) Estimated GFR (Cockcroft-Gault) 51.6 Glucose Level 65 mg/dL (70-99) Hemoglobin A1c 5.1 % (4.8-5.6) Uric Acid 3.5 mg/dL (2.6-6.0) Calcium Level 8.2 mg/dL (8.5-10.1) Test 04/24/21 07:57 04/24/21 12:22 04/24/21 12:30 Glucose (Fingerstick) 112 mg/dL (70-99) 103 mg/dL (70-99) Sodium Level 146 mmol/L (136-145) Potassium Level 4.0 mmol/L (3.5-5.1) Chloride Level 112 mmol/L (98-107) Carbon Dioxide Level 23 mmol/L (21-32) Anion Gap 11 (6-14) Blood Urea Nitrogen 21 mg/dL (7-20) Creatinine 1.3 mg/dL (0.6-1.0) Estimated GFR (Cockcroft-Gault) 42.5 BUN/Creatinine Ratio 16 (6-20) Glucose Level 104 mg/dL (70-99) Calcium Level 8.6 mg/dL (8.5-10.1) Total Bilirubin 0.2 mg/dL (0.2-1.0) Aspartate Amino Transf (AST/SGOT) 17 U/L (15-37) Alanine Aminotransferase (ALT/SGPT) 49 U/L (14-59) Alkaline Phosphatase 93 U/L (46-116) Total Protein 6.3 g/dL (6.4-8.2) Albumin 2.6 g/dL (3.4-5.0) Albumin/Globulin Ratio 0.7 (1.0-1.7) Laboratory Tests Test 04/24/21 07:57 04/24/21 12:22 04/24/21 12:30 Glucose (Fingerstick) 112 mg/dL (70-99) 103 mg/dL (70-99) Sodium Level 146 mmol/L (136-145) Potassium Level 4.0 mmol/L (3.5-5.1) Chloride Level 112 mmol/L (98-107) Carbon Dioxide Level 23 mmol/L (21-32) Anion Gap 11 (6-14) Blood Urea Nitrogen 21 mg/dL (7-20) Creatinine 1.3 mg/dL (0.6-1.0) Estimated GFR (Cockcroft-Gault) 42.5 BUN/Creatinine Ratio 16 (6-20) Glucose Level 104 mg/dL (70-99) Calcium Level 8.6 mg/dL (8.5-10.1) Total Bilirubin 0.2 mg/dL (0.2-1.0) Aspartate Amino Transf (AST/SGOT) 17 U/L (15-37) Alanine Aminotransferase (ALT/SGPT) 49 U/L (14-59) Alkaline Phosphatase 93 U/L (46-116) Total Protein 6.3 g/dL (6.4-8.2) Albumin 2.6 g/dL (3.4-5.0) Albumin/Globulin Ratio 0.7 (1.0-1.7) Brief Hospital Course Ms Gaytan is a 55-year-old female w/ PMHx DM2, migraines, gout, prior nephrolithiasis, s/p loreta-en-y gastric bypass who presents to the emergency department at [facility] in [place], [place] on 04/22/2021 for abdominal pain. Patient reports on Tuesday she started experiencing right flank pain that has now moved to her medial upper abdomen. She reports that the pain is worse after eating. She rates it 5 out of 10. She reports taking tramadol and her Protonix at home for her symptoms. Patient has a history of gout, GERD, hypertension, kidney stones, pyelitis. Patient reports nausea and a fever on Tuesday 1-1.7 which has resolved. Patient denies any vomiting, diarrhea, hematuria, urinary symptoms, reflux. She does note prior stones in 2013 and passed a few small kidney stones January 2021. She has migraines and previously had been on Imitrex and Maxalt prepump of maintenance therapy with Inderal and topiramate 200 mg daily has been on this for over a year but has not had headaches and has been trying to request decreasing her suppressive meds. WBC 5.6, Hb 12.2, platelets 192, NA 142, K4.2, BUN 29, CR 1.1, glucose 70, calcium 9.6, bilirubin 0.2, AST 46, ALT 104, alkaline phosphatase 115, albumin 3.1, lipase 94, urinalysis with large leuk esterase positive nitrites, rapid COVID-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 Transferred to [place] for further care and urology consultation. Bedside pain controlled with toradol. NPO for surgical evaluation. 04/23: To OR with no purulence from left kidney on Cystoscopy left retrograde pyelography interpretation, tolerated Left stent placement. Urine culture from [facility] positive for 100,000 CFU of E. coli 04/24: Seen bedside feeling well pain is controlled on minimal pain meds with hydrocodone. Will have outpatient follow-up for definitive stone treatment with urology in the next 2 weeks. Will discharge on 500 mg Cipro twice daily hydrocodone. Advised to decrease her topiramate to 50 mg twice daily and adjunctive sumatriptan and called in for her as well. 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 Urology f/u. OR with no purulence from left kidney on Cystoscopy left retrograde pyelography interpretation, tolerated Left stent placement on 04/23/2021 Migraines - with recurrent recent nephrolithiasis advised to decreased topiramate dosing. Gout - also notes prior uric acid stone 2013. On allopurinol DM2 - off meds due to weight loss. POC glucose check and sliding scale insulin UTI - E. coli, empiric cipro 14 days Greater than 30 minutes spent on day of d/c Discharge Information Condition at Discharge: Improved Follow Up: Weeks (1) Disposition/Orders: D/C to Home Scheduled Allopurinol (Allopurinol) 300 Mg Tablet, 300 MG PO DAILY for GOUT, (Reported) Entered as Reported by: JESSE TONY on 04/23/21308 Last Action: New Order on 04/23/21308 by JESSE TONY Cetirizine Hcl (Zyrtec) 10 Mg Tablet, 1 TAB PO DAILY for ALLERGIES, #30 Ref 2 (Reported) Entered as Reported by: JESSE TONY on 04/23/21308 Last Action: New Order on 04/23/21308 by JESSE TONY Ciprofloxacin Hcl (Ciprofloxacin Hcl) 500 Mg Tablet, 1 TAB PO BID for UTI/Stent for 14 Days, #28 Prescribed by: TOMMY VARGAS MD on 04/24/21 1424 Famotidine (Pepcid) 20 Mg Tablet, 20 MG PO HS for GERD, (Reported) Entered as Reported by: JESSE TONY on 04/23/21308 Last Action: New Order on 04/23/21308 by JESSE TONY Multivitamin (Multi Vitamin Daily) 1 Each Tablet, 1 TAB PO DAILY for SUPPLEMENT for 30 Days, #30 Ref 0 (Reported) Entered as Reported by: JESSE TONY on 04/23/21308 Last Action: New Order on 04/23/21308 by JESSE TONY Pantoprazole Sodium (Protonix ) 40 Mg Tablet.dr, 40 MG PO DAILYAC for GERD, (Reported) Entered as Reported by: JESSE TONY on 04/23/21308 Last Action: New Order on 04/23/21308 by JESSE TONY Propranolol Hcl (Inderal Xl) 80 Mg Cap.er.24h, 80 MG PO DAILY for MIGRAINES, (Reported) Entered as Reported by: JESSE TONY on 04/23/21308 Last Action: New Order on 04/23/21308 by JESSE TONY Sumatriptan Succinate (Sumatriptan Succinate) 100 Mg Tablet, 1 TAB PO UD for Migraine for 30 Days, #9 Ref 3 Prescribed by: TOMMY VARGAS MD on 04/24/21 1426 Topiramate (Topamax) 100 Mg Tablet, 100 MG PO BID for MIGRAINES, (Reported) Entered as Reported by: JESSE TONY on 04/23/21308 Last Action: New Order on 04/23/21308 by JESSE TONY Scheduled PRN Hydrocodone Bit/Acetaminophen (Hydrocodone-Apap 5-325 ) 1 Tab Tablet, 1 TAB PO PRN Q6HRS PRN for PAIN for 6 Days, #24 Prescribed by: TOMMY VARGAS MD on 04/24/21 1424 Hyoscyamine Sulfate (Anaspaz) 0.125 Mg Tab.rapdis, 0.125 MG PO PRN Q4HRS PRN for STOMACH CRAMPING for 10 Days, #30 Prescribed by: TOMMY VARGAS MD on 04/24/21 1423 Justicifation of Admission Dx: Justifications for Admission: Justification of Admission Dx: Yes TOMMY VARGAS MD Apr 24, 2021 14:30
--- NOTE | 2021-04-24 15:00 | NUR ---
Discharge Note: ISABELLA BILLINGS [address] [place] Discharge instructions and discharge home medications reviewed with Patient and spouse and a copy given. All questions have been answered and understanding verbalized. The following instructions and handouts were given: information about follow up appointments, diet, medications, activity. Discontinued lines and drains: IV line in left forearm removed, catheter tip intact. Patient discharged to home with self care with , wheelchair used for mobility to discharge vehicle.
== END 2021-04-24 15:00 | disposition home or self-care (01) | DRG 659 ==
LOC: 4 NORTH 22:44
PROVIDERS: ADMIT Internal Medicine; ATTEND Internal Medicine
PROC: BT1F1ZZ Fluoroscopy of Left Kidney, Ureter and Bladder using Low Osmolar Contrast (ICD-10-PCS; 2021-04-23)
PROC: 0T778DZ Dilation of Left Ureter with Intraluminal Device, Via Natural or Artificial Opening Endoscopic (ICD-10-PCS; principal; 2021-04-23 17:00)
DX: N20.2 Calculus of kidney with calculus of ureter (principal); E43 Unspecified severe protein-calorie malnutrition; N39.0 Urinary tract infection, site not specified; B96.20 Unspecified Escherichia coli [E. coli] as the cause of diseases classified elsewhere; E11.9 Type 2 diabetes mellitus without complications; G43.909 Migraine, unspecified, not intractable, without status migrainosus; I10 Essential (primary) hypertension; K21.9 Gastro-esophageal reflux disease without esophagitis; Z20.822 Contact with and (suspected) exposure to COVID-19; M10.9 Gout, unspecified; R16.1 Splenomegaly, not elsewhere classified; Z79.899 Other long term (current) drug therapy; Z82.49 Family history of ischemic heart disease and other diseases of the circulatory system; Z87.442 Personal history of urinary calculi; Z98.84 Bariatric surgery status; Z90.49 Acquired absence of other specified parts of digestive tract
CPT/HCPCS: 36415; 76000; 80048; 80053; 82962; 83036; 84550; 85025; A4657; A4930; C1758; C1769; C2617; J0690; J1100; J1815; J1885; J2270; J2405; J2543; J2704; J3010; J3480; J3490; J7030; J7120; Q9967; G0378